=== PATIENT | male | born 1985 | race Caucasian/White ===

== ENCOUNTER 2024-02-27 21:05 | Inpatient (IN) | payer OTHER, SELFPAY ==
[2024-02-27 17:22] VITALS: BP 117/65
[2024-02-27 17:26] VITALS: BP 117/65
--- NOTE | 2024-02-27 17:30 | ED.GENMED ---
History of Present Illness
General
Chief Complaint: Skin Problem
Time Seen by Provider: 02/27/24 17:16
History of Present Illness
History of Present Illness:
Patient is a 38-year-old male who is an inmate at correctional facility who presents for cellulitis. Reports that he has recurrent cellulitis in the left lower extremity. He has a history of injection drug use. He has not done this in years. He
reports having redness and pain to the left lower extremity. This is worsened despite a course of doxycycline which she finished on Monday. Had a fever to 104 today. Given vancomycin and cefepime just prior to coming to the hospital. Given
Tylenol just prior to coming to the hospital
Past History
Past History
ED Past Medical History: None
Social History
Tobacco: Former smoker
Alcohol: Occasional
Family History
Family History: Negative Diabetes, Hypertension or CAD
Phy Exam
Physical Exam
Physical Exam:
GENERAL APPEARANCE: No distress, disheveled appearing, feels warm
EYES lids/conjunctiva normal
EARS/NOSE/THROAT Mucous membranes moist, uvula midline without oral pharyngeal erythema, exudate or swelling
HEAD/NECK normocephalic atraumatic, neck is supple.
RESPIRATORY respiratory effort normal, speaks in full sentences, no accessory muscle use. Lungs clear to auscultation without rhonchi, wheezes, rales
CARDIAC tachycardic
ABDOMINAL Soft, ND/NT. No pulsatile masses on exam, rebound tenderness, Johnson sign or pain over Mcburney's point.
MUSCLES/EXTREMITIES soft tissue edema to lower extremities bilaterally. There is erythema and superficial abrasions on anterior left lower leg. Erythema is streaking up left medial thigh. There are palpable pulses. Sensations intact to light
touch throughout. Is 5 out of 5 strength throughout there is left inguinal lymphadenopathy which patient states is chronic from prior missed 1 injecting drugs
SKIN Warm, pink and dry. No rashes
NEUROLOGICAL Speech is clear and appropriate. Normal level of consciousness. 5/5 strength in all extremities.
PSYCH Normal mood and affect. Judgement/competence is appropriate
Sepsis
Sepsis Screening
Sepsis Assessment: Sepsis
Sepsis Screen
Sepsis Screen: Sepsis
Date: 02/27/24
Time: 22:46
Course
Orders/Labs/Results
Orders:
Orders
02/27/24 17:25
Urinalysis Reflex To Culture Urgent
0.9% Sodium Chloride 1000 ml [Nss] 2,000 ml IV BOLUS
US Periph Venous LOWER Ext LT Urgent
Comment:
Reason For Exam: rule out dvt
02/27/24 17:26
Electrocardiogram (*1) Urgent
Reason for Study: Other
Other Reason for Exam: sepsis
02/27/24 18:36
Blood Culture Q30M
JOAN Source: Blood/Venous
Specimen Description:
02/27/24 18:57
Complete Blood Count/With Diff Urgent
Comprehensive Metabolic Panel Urgent
Manual Differential Urgent
Blood Culture Q30M
JOAN Source: Blood/Venous
Specimen Description:
02/27/24 20:16
Admit/Transfer Patient As Directed
Co-Sign Provider:
Level of Care: Inpatient admission
Assign to:: Medical/Surgical
Physician / Group: hospitalist
Diagnosis: cellulitis
Reason for Hospitalization: sepsis
Expected length of stay greater than two midnights?: Yes
ELOS- Estimated Length of Stay in days: 2
I certify the patient meets the requirements for IP care: Yes
PRN Pain Medication Management As Directed
May give lesser potent ordered pain med per pt: Yes
preference::
Protocol:: Medication orders for pain may be administered in a
manner that supports deferring to patient preference
when the pt is:
- Requesting an ordered lesser potent pain medication.
Least to most potent pain medications are defined
as: acetaminophen < NSAID < tramadol < opioids
(morphine, oxycodone, hydromorphone).
- Requesting a lesser dose of the same medication IF
ORDERED.
- Requesting a less intrusive route of administration
if both routes are prescribed by the provider (PO <
IV).
02/27/24 20:17
Code Status As Directed
Resuscitation Status: Full Code
02/27/24 21:02
Lactic Acid Q4H
Comment: CANCEL 2nd LACTIC ACID IF 1st LACTIC ACID IS LESS THAN 2
Abnormal Lab Results
02/27/24
18:57
RBC 3.89 L 10^6/uL
(4.70-6.10)
Hgb 10.8 L g/dL
(13.0-18.0)
Hct 33.2 L %
(39.0-52.0)
MCHC 32.5 L g/dL
(33.0-37.0)
RDW 15.9 H %
(11.5-14.5)
Abs Neuts (Manual) 8.7 H 10^3/uL
(1.4-6.5)
Band Neutrophils 27 H %
(0-3)
Lymphocytes (Manual) 3 L %
(20-51)
BUN 22 H mg/dl
(9-20)
02/27/24 18:57
02/27/24 18:57
Vital Signs
Initial and Last Documented VS:
Initial Vital Signs
Temp Pulse Resp BP Pulse Ox
99.4 F 127 20 117/65 100
02/27/24 17:22 02/27/24 17:22 02/27/24 17:22 02/27/24 17:22 02/27/24 17:22
Last Documented Vital Signs
Temp Pulse Resp BP Pulse Ox
99.0 F 101 19 122/66 96
02/27/24 22:00 02/27/24 22:00 02/27/24 22:00 02/27/24 22:00 02/27/24 22:00
*Critical Care Note
Total Time (30-74mins, 75-104mins- exclusive of procedures): Not Applicable
ED Attending Note
ED Attending Note
ED Attending Note:
Patient presents with febrile cellulitis. No fluctuance or purulence noted. Concern for sepsis with fevers and tachycardia. Will need admission. Will rule out DVT. Patient received broad-spectrum antibiotics just prior to arrival.
-
Portions of this chart may have been created with voice recognition software.� Occasional wrong word or��sound alike� substitutions may have occurred due to the inherent limitations of voice recognition software.
Discharge Plan
Departure
Patient Disposition: Admit
Date of Disposition: 02/27/24
Time of Disposition: 20:11
Presentation/result/management discussed w/ accepting MD/DO: Hospitalist
Discharge Problem:
Cellulitis, Sepsis
Interventions
Interventions:
*Risk Screen - Suicide Last Done: 02/27/24 17:26
*General Assessment Last Done: 02/27/24 17:26
*Neglect/Abuse Screening Last Done: 02/27/24 18:12
ED- Fall Risk Assessment Last Done: 02/27/24 18:14
*ED COVID-19 Vaccine History Last Done: 02/27/24 18:12
*Nursing Disposition Last Done: 02/27/24 22:42
ED-Skin Assessment Last Done: 02/27/24 18:14
Discharge Date and Time
Discharge Date/Time: 02/27/24 22:43
[2024-02-27] MEDS: NSS 2000 IV (18:54)
[2024-02-27 19:25] LABS: ALT (SGPT) 28 U/L (0-50); AST (SGOT) 29 U/L (17-59); Albumin 3.8 g/dl (3.5-5.0); Alkaline Phosphatase 78 U/L (38-126); Blood Urea Nitrogen 22 mg/dl (9-20); Calcium 8.4 mg/dl (8.4-10.2); Carbon Dioxide 27 mmol/L (22-30); Chloride 99 mmol/L (98-107); Glucose 95 mg/dl (70-99); Potassium 4.1 mmol/L (3.5-5.1); Sodium 135 mmol/L (135-145); Total Bilirubin 0.5 mg/dl (0.2-1.3); Total Protein 7.7 g/dl (6.3-8.2); eGFR > 60.00
[2024-02-27 19:30] LABS: Hematocrit 33.2 % (39.0-52.0); Hemoglobin 10.8 g/dL (13.0-18.0); Mean Corp Hgb Conc. 32.5 g/dL (33.0-37.0); Mean Corpuscular Hgb 27.8 pg (27.0-31.0); Mean Corpuscular Volume 85.3 fL (80.0-94.0); Mean Platelet Volume 8.6 fL (7.4-10.4); Platelet Count 159 10^3/uL (130-400); Red Blood Cell Count 3.89 10^6/uL (4.70-6.10); Red Cell Dist. Width 15.9 % (11.5-14.5); White Blood Cell Count 9.2 10^3/uL (4.8-10.8)
[2024-02-27 19:32] LABS: Absolute Neutrophils -Man Diff 8.7 10^3/uL (1.4-6.5); Band Neutrophils 27 % (0-3); Lymphocytes 3 % (20-51); Monocytes 2 % (2-9); Platelets Checked Yes; Segmented Neutrophils 68 % (42-75)
[2024-02-27 19:33] LABS: Anisocytosis 1+; Microcytosis 1+; Normal RBC Morphology No; Total Cells Counted 100
--- NOTE | 2024-02-27 20:24 | HPS.HSE ---
Family Physician
-
Family Physician: [facility]
Chief Complaint
-
Left leg pain and swelling and fevers
History of Present Illness
This is a 38-year-old male with past medical history of IV drug use currently incarcerated who presents to the emergency department with redness swelling in the left lower extremities as well as fevers.
Patient tells me that he has had a history of chronic wound in the left lower extremity and has recurrent infections to the. He reports that he has recently been started on doxycycline and has finished a course without any improvement. Things were
essentially stable up until today when he had a severe flareup with high fevers. He reported marked redness and swelling up to the knees. There was no new drainage. He had no new injuries.
On arrival in the emergency department he had a temp of 99.4, blood pressure 117/69 and was tachycardic 129. White count was 9 with 27% bands. Electrolytes and BUN/creatinine were within normal limits. Patient was started on vancomycin and
cefepime.
Medical History
Past Medical History
Past Medical History: Reports Other
Additional Past Medical History:
IVDU
Past Surgical History: Reports Orthopedic (Lumbar spine discectomy and fusion, shoulder arthroscopy)
Social History
Tobacco: Former Smoker
Alcohol: None
Drug: Former User
Personal: Single
Living: Halfway
Employment: Not Employed
Family History
Family History: Not pertinent
Allergies / Home Medications
Allergies reflects when Allergies were last updated in [employer].
Home Medications with original date entered in [employer]
Allergy/Medication List:
Allergies
Allergy/AdvReac Type Severity Reaction Status Date / Time
No Known Allergies Allergy Verified 02/27/24 17:21
Home Medications
buprenorphine HCl 8 mg sublingual tablet 16 mg sublingual DAILY 02/27/24
cefepime 2 gram solution for injection 0 g IV Q12H 02/27/24
furosemide 20 mg tablet 20 mg PO DAILY 02/27/24
ibuprofen 200 mg tablet 200 mg PO BIDPRN PRN mild pain/fever 02/27/24
vancomycin 1,000 mg intravenous injection 0 g IV BID 02/27/24
Review of Systems
-
History Source: Patient
Constitutional: Reports Fever
EENT: Reports No Symptoms
Respiratory: Reports No Symptoms
Cardiac: Reports No Symptoms
Abdomen/GI: Reports No Symptoms
: Reports No Symptoms
Musculoskeletal: Reports Edema
Skin: Reports Rash
Neurological: Reports No Symptoms
Endocrine: Reports No Symptoms
Hematologic/Lymphatic: Reports No Symptoms
Psych: Reports No Symptoms
Physical Exam
Vital Signs
Vital Signs
Temp Pulse Resp BP Pulse Ox
99.4 F 129 20 117/65 98
02/27/24 17:26 02/27/24 17:26 02/27/24 17:26 02/27/24 17:26 02/27/24 17:26
Physical Exam
General: Well Developed, Well Nourished and Comfortable
HEENT: NormoCephalic, Anicteric, Moist mucous membranes and Atraumatic
Respiratory: Clear
Cardiac: S1/S2 and Tachycardia
Breast: Deferred by me
GI: Soft, Non Tender, Non Distended and Normal Bowel Sounds
Rectal: Deferred by Provider
Genito-urinary: Deferred by me
Musculoskeletal: No Clubbing, No Cyanosis and Edema, Left Lower Extremity
Skin: Rash (rapidly spreading LLE erythema, tenderness and edema. )
Neuro: AO x 3
Hematologic/Lymphatic: No Lymphadenopathy
Psych: Calm
Laboratory Results
-
02/27/24 18:57
02/27/24 18:57
Laboratory Results
Total Bilirubin 0.5 mg/dl (0.2-1.3) 02/27/24 18:57
AST 29 U/L (17-59) 12/10/24 18:57
ALT 28 U/L (0-50) 02/27/24 18:57
Alkaline Phosphatase 78 U/L (38-126) 02/27/24 18:57
Data Reviewed
-
Ultrasound: Report Reviewed by me
Lab Data: Labs Reviewed by me
Old Records: Reviewed
Impression/Plan
-
IMPRESSION:
Severe left LE cellulitis. No DVT. No apparent deep tissue edema on u/s. Has bandemia with lactic acid pending. Likely sepsis given fever, tachycardia and rapid spread.
PLAN:
Cellulitis
- admit to med surg
- 30 ml/kg NS bolus
- continue iv fluids overnight
- cefepime q8, Vancomycin per pharm dosing, clindamycin q8 (d/c pending improvement)
- ID consultation
h/o IVDU
- continue buprenorphine daily
DVT PPX - lovenox sq
Code status - full code
[2024-02-27 22:00] VITALS: BP 122/66
[2024-02-27 23:04] VITALS: BMI 23.9
[2024-02-27 23:30] LABS: Urine Albumin Trace (Neg - Trace); Urine Bilirubin Negative (Negative); Urine Character Clear (Clear); Urine Color Yellow; Urine Glucose Negative (Negative); Urine Ketone Negative (Negative); Urine Leukocyte Trace (Negative); Urine Nitrite Negative (Negative); Urine Occult Blood Negative (Negative); Urine Specific Gravity 1.015 (<1.030); Urine Urobilinogen Negative (Neg - 1+)
[2024-02-27] MEDS: CLEOCIN 50 IV (23:30)
[2024-02-27] MEDS: DILAUDID 0.5 MG IV (23:30)
[2024-02-27 23:39] VITALS: BP 109/71
[2024-02-27] MEDS: TYLENOL 650 MG PO (23:43)
[2024-02-27 23:51] LABS: Urine Red Blood Cell 0-2 /HPF (0-2); Urine Squamous Cell 0-2 /LPF (Few)
[2024-02-28] MEDS: VANCOCIN 540 MG IV (00:18)
[2024-02-28] MEDS: STERILE WATER FOR INJECTION 10 ML IV ×2 (02:40→10:22)
[2024-02-28] MEDS: MAXIPIME 2000 MG IV ×2 (02:40→10:22)
[2024-02-28] MEDS: DILAUDID 0.5 MG IV ×3 (03:35→19:48)
[2024-02-28] MEDS: TYLENOL 650 MG PO ×3 (03:45→23:26)
--- NOTE | 2024-02-28 05:31 | PTCARENOTE ---
Pt admitted to [facility] from ED. Pt AAOx3. Ambulated from stretcher with standby assist. + generalized pain, PRN dilaudid given x 2. Lungs clear, pt on room air. Good appetite. + UOP. Pt febrile overnight with tmxax 103.3, tylenol given x 2.
[2024-02-28] MEDS: TORADOL 10 MG IV ×3 (06:37→23:25)
[2024-02-28 07:15] VITALS: BP 98/57
[2024-02-28] MEDS: LASIX 20 MG PO (07:49)
[2024-02-28] MEDS: SUBUTEX 16 MG SL (07:49)
[2024-02-28] MEDS: CLEOCIN 50 IV ×3 (08:27→23:22)
--- NOTE | 2024-02-28 09:51 | CM ---
Pt admitted with cellulitis from [facility]. CM will follow for discharge planning needs.
Plan: Pt will return to [facility] via van with guard when medically stable.
[facility] phone: [phone]
[2024-02-28 10:34] LABS: Hematocrit 28.9 % (39.0-52.0); Hemoglobin 9.9 g/dL (13.0-18.0); Mean Corp Hgb Conc. 34.3 g/dL (33.0-37.0); Mean Corpuscular Hgb 28.5 pg (27.0-31.0); Mean Corpuscular Volume 83.3 fL (80.0-94.0); Mean Platelet Volume 9.2 fL (7.4-10.4); Platelet Count 155 10^3/uL (130-400); Red Blood Cell Count 3.47 10^6/uL (4.70-6.10); Red Cell Dist. Width 16.3 % (11.5-14.5)
[2024-02-28 11:10] LABS: Blood Urea Nitrogen 23 mg/dl (9-20); Calcium 7.4 mg/dl (8.4-10.2); Carbon Dioxide 24 mmol/L (22-30); Chloride 100 mmol/L (98-107); Estimated Creatinine Clearance > 125 ml/min; Glucose 81 mg/dl (70-99); Sodium 133 mmol/L (135-145); eGFR > 60.00
--- NOTE | 2024-02-28 11:14 | W.PN.HOSP.TC ---
Today's Communication/Plan
-
see A/P
Assessment / Plan
Assessment / Plan
HPI: 38-year-old male with past medical history of IV drug use currently incarcerated who presented to the emergency department with redness, swelling in the left lower extremities as well as fevers.
Patient has history of chronic wound in the left lower extremity and has recurrent infections. He reports that he has recently been started on doxycycline and has finished a course without any improvement. He reported marked redness and swelling up
to the knees. There was no new drainage. He had no new injuries.
A/P:
# sepsis POA 2/ LLE Cellulitis
Follow blood culture
Cont Abx cefepime q8, and Vancomycin per pharm dosing, clindamycin q8 (d/c pending improvement)
ID consultation
Check BL LE US
# h/o IVDU
continue buprenorphine daily
DVT PPX - lovenox sq
Code status - full code
Anticipated Discharge: 24 - 48 hours
Subjective/Interval History
-
Date of Service: February 28, 2024
Objective Data
-
Labs:
Laboratory Results
02/28/24
10:08
WBC 15.0 H
Hgb 9.9 L
Hct 28.9 L
Plt Count 155
Sodium 133 L
Potassium 4.0
Chloride 100
Carbon Dioxide 24
BUN 23 H
Creatinine 1.0
Glucose 81
Calcium 7.4 L
Vital Signs:
Vital Signs
Temp Pulse Resp BP Pulse Ox
37.9 C 104 18 98/57 98
02/28/24 07:15 02/28/24 07:15 02/28/24 07:15 02/28/24 07:15 02/28/24 07:15
I&O
02/27/24 02/28/24 02/29/24
06:59 06:59 06:59
Intake Total 960 / 960
Output Total 675 / 675
Balance 285 / 285
--- NOTE | 2024-02-28 13:10 | PHA.VAN.IN ---
Assessment
- Assessment
Renal Function: Unknown baseline
Maximum Temperature: 103.3
Minimum Temperature: 99.0
Concomitant Antimicrobials: cefepime, clindamycin
AUC Dosing Plan
- Dosing Variables
Dosing Weight (kg): 93.7
Dosing CrCl (ml/min): 125
Vd coefficient (L/kg): 0.7
- Empiric Dosing
Initial / Loading Dose: vanc 2000mg (21.3 mg/kg) 02/27 00:18
Maintenance Regimen: vanc 1000mg q8h
Estimated AUC (mcg*h/mL): 428
Estimated Peak (mcg*h/mL): 25.3
Estimated Trough (mcg/ml): 11.8
Estimated Half Life (H): 6.4
- Monitoring
No levels ordered at this time: consider in the upcoming days
Pharmacokinetics Vancomycin I
- -
Patient Age: 38
Patient Sex: Male
Vancomycin Day #: 1 (vancomycin prior to admission)
Indication: Skin And Soft Tissue
Requesting Provider: Dr. Eden
Pertinent Antimicrobial Allergies:
no known allergies
Height / Weight:
Height 6 ft 6 in
Actual Weight 93.758 kg
Pertinent Past Medical History: IV drug use
- Vital Signs / Lab Results
Temp Pulse Resp BP Pulse Ox
100.2 F 104 18 98/57 98
02/28/24 07:15 02/28/24 07:15 02/28/24 07:15 02/28/24 07:15 02/28/24 07:15
Lab Results - Hematology
02/27/24 02/28/24
18:57 10:08
WBC 9.2 15.0 H
Band Neutrophils 27 H
Lab Results - Chemistry
02/27/24 02/28/24
18:57 10:08
BUN 22 H 23 H
Creatinine 0.9 1.0
Estimated Creat Clear > 125
Albumin 3.8
02/27/24 02/27/24
18:57 21:02
Lactic Acid Cancelled 1.0
Lab Results - Urine
02/27/24
23:12
Urine Nitrite (Reflex) Negative
Leukocyte Esterase Rfl Trace A
Urine WBC (Reflex) 3-5
Ur Squamous Epith Cells 0-2
--- NOTE | 2024-02-28 13:35 | CON.ID ---
Consultation
-
Date/Time Consultation Requested: 02/28/24 11:21
Date/Time Consultation Performed: 02/28/24 13:36
Requesting Provider: Dr Espinoza
Performing Provider: Dr Viera
Reason for Consultation: Left leg pain and swelling and fevers
Chief Complaint / Past History
Chief Complaint
Left leg pain and swelling and fevers
History of Present Illness
Mr Draper is a 38 year old male with history of IVDU now on buprenorphine complicated by a chronic wound of the L lower extremity presenting here from [facility] for increased redness and swelling of the left lower extremity and fevers.
Reports a recent course of doxycycline which he finished without improvement. Reports he's never been screened for HIV, has previously been screened for hep c and told his ab was positive but viral load undetectable. Has been on buprenorphine for
several weeks
Since arrival here patient has been febrile to 103.3, bp overall stable, HR 80s initially now running low 100s, wbc initially 9.2 todya 15, hgb 9.9, plt 155, no differential done, na 133, cr 1.0, t bili 0.5, ast 29, alt 28, alk phos 78, UA no
pyuria, venous US: no dvt, reactive lymphadenopathy noted, blood cultures x2 in progress, currently on vanc, cefepime and clindamycin
Past History
Additional Past Medical History:
as per hpi
Additional Past Surgical History:
Lumbar spine discectomy and fusion, shoulder arthroscopy
Allergy History:
No Known Allergies Allergy (Verified 02/27/24 17:21)
Medications Reviewed: Yes
Social History
Tobacco: Former Smoker
Alcohol: None
Drug: Former User
Family History
Family History: Not Pertinent
Review of Systems
Review of Systems
General: Fever and Chills
All systems: All other systems were reviewed and were negative
Vital Signs
Temp Pulse Resp BP Pulse Ox
100.2 F 104 18 98/57 98
02/28/24 07:15 02/28/24 07:15 02/28/24 07:15 02/28/24 07:15 02/28/24 07:15
Physical Exam
Physical Exam
Constitutional: No Acute Distress
Cardiovascular: Regular Rate and S1/S2; Negative Murmur or Rub
Pulmonary: Clear and Symmetric; Negative Wheezes, Rales or Rhonchi
Gastrointestinal: Soft, Non Tender, Non Distended and Normal Bowel Sounds
Extremities: Other (left leg 4 superficial excoriations without probe to tendon or bone, xerosis, nonpurulent cellulitis and trace edema)
Skin: Warm and Dry; Negative Rash or Jaundice
Neurological: Awake
Lab / Diagnostic Study Results
02/28/24 10:08
02/28/24 10:08
Total Counted 100 02/27/24 18:57
Abs Neuts (Manual) 8.7 10^3/uL (1.4-6.5) H 02/27/24 18:57
Segmented Neutrophils 68 % (42-75) 02/27/24 18:57
Band Neutrophils 27 % (0-3) H 02/27/24 18:57
Lymphocytes (Manual) 3 % (20-51) L 02/27/24 18:57
Lactic Acid 1.0 mmol/L (0.7-2.0) 02/27/24 21:02
Ur Squamous Epith Cells 0-2 /LPF (Few) 02/27/24 23:12
Microbiology Results
Micro:
02/27/24 18:57 Blood Culture - Pending
Blood/Venous
02/27/24 18:36 Blood Culture - Pending
Blood/Venous
Assessment / Plan
Nonpurulent cellulitis
Superficial wounds x4
Edema
- blood cultures x2 in progress
- start cefazolin 2 gm iv q8hrs
- clindamycin x2 days
- UDS
- too tender for compression at the moment, elevation encouraged
- xray of the leg - wounds are very superficial and not overlying any bony prominences - doubt osteomyelitis
- screen for HIV - patient gives consent
- follow clinically
[2024-02-28 15:15] VITALS: BP 104/64
[2024-02-28 15:25] LABS: Amphetamines Negative (Negative); Barbiturates Negative (Negative); Benzodiazepines Negative (Negative)
[2024-02-28 15:26] LABS: Buprenorphine Positive (Negative); Cocaine Negative (Negative); Marijuana Negative (Negative); Methadone Negative (Negative); Methamphetamines Negative (Negative); Opiates Negative (Negative); Phencyclidine Negative (Negative); Tricyclic Antidepressants Negative (Negative)
[2024-02-28 16:04] LABS: Fentanyl, Urine Negative (Negative)
[2024-02-28] MEDS: ANCEF 10 IV ×2 (16:49→23:28)
[2024-02-28] MEDS: LOVENOX 40 MG SC (18:33)
[2024-02-28 23:01] VITALS: BP 102/59
[2024-02-29] MEDS: DILAUDID 0.5 MG IV ×4 (01:37→23:18)
[2024-02-29 07:55] LABS: Hematocrit 30.8 % (39.0-52.0); Hemoglobin 9.7 g/dL (13.0-18.0); Mean Corp Hgb Conc. 31.5 g/dL (33.0-37.0); Mean Corpuscular Hgb 28.2 pg (27.0-31.0); Mean Corpuscular Volume 89.5 fL (80.0-94.0); Mean Platelet Volume 8.9 fL (7.4-10.4); Platelet Count 137 10^3/uL (130-400); Red Blood Cell Count 3.44 10^6/uL (4.70-6.10); Red Cell Dist. Width 16.2 % (11.5-14.5); White Blood Cell Count 14.1 10^3/uL (4.8-10.8)
[2024-02-29] MEDS: ANCEF 10 IV ×3 (08:07→23:18)
[2024-02-29] MEDS: CLEOCIN 50 IV ×2 (08:07→15:40)
[2024-02-29] MEDS: LASIX 20 MG PO (08:08)
[2024-02-29] MEDS: SUBUTEX 16 MG SL (08:08)
[2024-02-29 08:25] VITALS: BP 120/79
[2024-02-29 08:26] LABS: Blood Urea Nitrogen 25 mg/dl (9-20); Calcium 7.8 mg/dl (8.4-10.2); Carbon Dioxide 25 mmol/L (22-30); Chloride 102 mmol/L (98-107); Estimated Creatinine Clearance > 125 ml/min; Glucose 76 mg/dl (70-99); Magnesium 1.9 mg/dl (1.6-2.3); Potassium 4.3 mmol/L (3.5-5.1); Sodium 134 mmol/L (135-145); eGFR > 60.00
[2024-02-29 10:56] LABS: Absolute Neutrophils -Man Diff 12.4 10^3/uL (1.4-6.5); Band Neutrophils 8 % (0-3); Eosinophils 1 % (0-6); Lymphocytes 5 % (20-51); Metamyelocytes 2 % (-); Monocytes 4 % (2-9); Segmented Neutrophils 80 % (42-75)
[2024-02-29 10:57] LABS: Normal RBC Morphology Yes; Platelets Checked Yes; Total Cells Counted 100; Toxic Granulation 1+
--- NOTE | 2024-02-29 11:42 | W.PN.HOSP.TC ---
Today's Communication/Plan
-
see A/P
Assessment / Plan
Assessment / Plan
HPI: 38-year-old male with past medical history of IV drug use currently incarcerated who presented to the emergency department with redness, swelling in the left lower extremities as well as fevers.
Patient has history of chronic wound in the left lower extremity and has recurrent infections. He reports that he has recently been started on doxycycline and has finished a course without any improvement. He reported marked redness and swelling up
to the knees. There was no new drainage. He had no new injuries.
A/P:
# sepsis POA 2/ LLE Cellulitis
blood cultures so far negative
cont IV Abx Ancef for now and clindamycin for x2 days
Appreciate ID input
BL LE US neg for DVT
# h/o IVDU
continue buprenorphine daily
DVT PPX - lovenox sq
Code status - full code
Anticipated Discharge: 24 - 48 hours
Subjective/Interval History
-
Date of Service: February 29, 2024
Objective Data
-
Labs:
Laboratory Results
02/29/24
07:18
WBC 14.1 H
Hgb 9.7 L
Hct 30.8 L
Plt Count 137
Sodium 134 L
Potassium 4.3
Chloride 102
Carbon Dioxide 25
BUN 25 H
Creatinine 0.9
Glucose 76
Calcium 7.8 L
Vital Signs:
Vital Signs
Temp Pulse Resp BP Pulse Ox
36.9 C 80 16 120/79 100
02/29/24 08:25 02/29/24 08:25 02/29/24 08:25 02/29/24 08:25 02/29/24 08:25
I&O
02/28/24 02/29/24 03/01/24
06:59 06:59 06:59
Intake Total 960 / 960 1660 / 1660 1440 / 1440
Output Total 675 / 675 1300 / 1300 1650 / 1650
Balance 285 / 285 360 / 360 -210 / -210
Review of Systems
-
All other systems: Reviewed and negative
Physical Exam
-
General: Well Developed, Well Nourished, No Apparent Distress, Comfortable and Conversant; Negative Respiratory Distress
HEENT: Normocephalic, Atraumatic, Nose Appears Normal and Ears Appear Normal; Negative Oxygen
Respiratory: Non Labored Respirations; Negative Accessory Resp Muscle Use
Cardiac: Regular Rhythm and S1/S2
GI: Soft, Nontender, Nondistended and Normal Bowel Sounds
Musculoskeletal: Edema, Right Lower Extrem and Edema, Left Lower Extrem
Skin: Warm and Dry
Neuro: Awake, Alert, Oriented and AO x 3
Psych: Calm and Intact Judgement/Insight
Data Reviewed
-
Ultrasound: Report Reviewed by me
Labs: Labs Reviewed by me
--- NOTE | 2024-02-29 13:36 | CM ---
CM following re: discharge planning.
Reviewed pt's chart, guards at bedside.
Pt is admitted from [facility] phone: [phone]
D/C plan: return back to [facility] when medically stable. Guards to transport.
[2024-02-29] MEDS: TYLENOL 650 MG PO (15:40)
[2024-02-29] MEDS: ZOFRAN 4 MG IV (15:40)
[2024-02-29 16:10] VITALS: BP 101/66
--- NOTE | 2024-02-29 17:20 | W.PN.ID1 ---
Date of Service
Date of Service: February 29, 2024
Today's Communication
- c/w cefazolin 2 gm iv q8hrs; tomorrow can switch to keflex 500 mg PO QID x5 more days
Assessment / Plan
Nonpurulent cellulitis
Superficial wounds x4 on the L leg
Edema
- blood cultures x2 in progress
- c/w cefazolin 2 gm iv q8hrs; tomorrow can switch to keflex 500 mg PO QID x5 more days
- stop clindamycin
- too tender for compression at the moment, elevation encouraged
- xray of the leg - no evidence of osteomyelitis, wounds are chronic for months and healing, if there was underlying osteomyelitis of this duration then it would be appreciated on xray. clinical picture is not consistent with osteomyelitis.
- screen for HIV - patient gives consent - pending
- local wound care
- follow clinically
Chief Complaint
-: Cellulitis
Subjective / Review of Systems
afebrile
leg much less erythematous
tolerating current therapies
much less pain in the leg
Vital Signs / Physical Exam
Vital Signs
Vital Signs
Temp Pulse Resp BP Pulse Ox
99.1 F 83 16 101/66 99
02/29/24 16:10 02/29/24 16:10 02/29/24 16:10 02/29/24 16:10 02/29/24 16:10
Physical Exam
Constitutional: No Acute Distress
Cardiovascular: Regular Rate and S1/S2; Negative Murmur or Rub
Pulmonary: Clear and Symmetric; Negative Wheezes or Rales
Gastrointestinal: Soft, Non Tender, Non Distended and Normal Bowel Sounds
Extremities: Other (left leg still with mild pinkness (much improved), mildly tender)
Skin: Warm and Dry; Negative Rash or Jaundice
Wound: Other (wounds x4 examined superficial, nonpurulent)
Neurological: Awake
Objective Data
Lab Data
Lab Results
02/29/24 07:18
02/29/24 07:18
Estimated Creat Clear > 125 ml/min 02/29/24 07:18
Lactic Acid 1.0 mmol/L (0.7-2.0) 02/27/24 21:02
Total Bilirubin 0.5 mg/dl (0.2-1.3) 02/27/24 18:57
AST 29 U/L (17-59) 02/27/24 18:57
ALT 28 U/L (0-50) 02/27/24 18:57
Alkaline Phosphatase 78 U/L (38-126) 02/27/24 18:57
Most recent labs reviewed.
Micro Results:
02/29/24 16:33 MRSA Screen - Pending
Nose
02/27/24 18:57 Blood Culture - Preliminary
Blood/Venous No Growth in 24 hours- Final report to follow
02/27/24 18:36 Blood Culture - Preliminary
Blood/Venous No Growth in 24 hours- Final report to follow
[2024-02-29] MEDS: LOVENOX 40 MG SC (17:58)
[2024-02-29] MEDS: TORADOL 10 MG IV (20:43)
[2024-02-29 23:10] VITALS: BP 101/61
[2024-03-01 07:55] VITALS: BP 107/71
[2024-03-01] MEDS: ANCEF 10 IV (08:11)
[2024-03-01] MEDS: SUBUTEX 16 MG SL (08:11)
[2024-03-01] MEDS: LASIX 20 MG PO (08:12)
[2024-03-01 08:34] LABS: % Basophils 0.5 % (0-2); % Immature Granulocytes 0.2 % (0-0.5); % Lymphocytes 11.4 % (20.5-51.1); % Monocytes 7.2 % (1.7-9.3); % Neutrophils 78.7 % (42.2-75.2); Absolute Eosinophils 0.2 10^3/uL (0-0.7); Absolute Monocytes 0.6 10^3/uL (0.1-0.6); Absolute Neutrophils 6.6 10^3/uL (1.4-6.5); Hemoglobin 9.5 g/dL (13.0-18.0); Mean Corp Hgb Conc. 32.8 g/dL (33.0-37.0); Mean Corpuscular Hgb 28.7 pg (27.0-31.0); Mean Corpuscular Volume 87.6 fL (80.0-94.0); Mean Platelet Volume 9.1 fL (7.4-10.4); Nucleated Red Blood Cells % 0 % (-); Platelet Count 140 10^3/uL (130-400); Red Blood Cell Count 3.31 10^6/uL (4.70-6.10); Red Cell Dist. Width 15.8 % (11.5-14.5); White Blood Cell Count 8.4 10^3/uL (4.8-10.8)
[2024-03-01 09:03] LABS: Blood Urea Nitrogen 22 mg/dl (9-20); Carbon Dioxide 27 mmol/L (22-30); Chloride 101 mmol/L (98-107); Estimated Creatinine Clearance > 125 ml/min; Glucose 86 mg/dl (70-99); Magnesium 1.7 mg/dl (1.6-2.3); Potassium 4.5 mmol/L (3.5-5.1); Sodium 132 mmol/L (135-145); eGFR > 60.00
--- NOTE | 2024-03-01 09:49 | W.PN.HOSP.TC ---
Addendum entered and electronically signed by Roxana Espinoza MD 03/01/24 14:28:
Total DC time 35 minutes
Original Note:
Today's Communication/Plan
-
see A/P
Assessment / Plan
Assessment / Plan
HPI: 38-year-old male with past medical history of IV drug use currently incarcerated who presented to the emergency department with redness, swelling in the left lower extremities as well as fevers.
Patient has history of chronic wound in the left lower extremity and has recurrent infections. He reports that he has recently been started on doxycycline and has finished a course without any improvement. He reported marked redness and swelling up
to the knees. There was no new drainage. He had no new injuries.
A/P:
# sepsis POA 2/2 LLE Cellulitis
blood cultures so far negative
IV Abx Ancef -> PO keflex 500 mg PO QID x5 more days
s/p clindamycin for x2 days
Appreciate ID input
BL LE US neg for DVT
# h/o IVDU
continue buprenorphine daily
# Mild hyponatremia
Sodium level 132 today
DVT PPX - lovenox sq
Code status - full code
Anticipated Discharge: Today
Subjective/Interval History
-
Date of Service: March 01, 2024
Objective Data
-
Labs:
Laboratory Results
03/01/24
08:02
WBC 8.4
Hgb 9.5 L
Hct 29.0 L
Plt Count 140
Sodium 132 L
Potassium 4.5
Chloride 101
Carbon Dioxide 27
BUN 22 H
Creatinine 0.7
Glucose 86
Calcium 8.0 L
Vital Signs:
Vital Signs
Temp Pulse Resp BP Pulse Ox
36.8 C 79 16 107/71 98
03/01/24 07:55 03/01/24 07:55 03/01/24 07:55 03/01/24 07:55 03/01/24 07:55
I&O
02/29/24 03/01/24 03/02/24
06:59 06:59 06:59
Intake Total 1660 / 1660 4280 / 4280
Output Total 1300 / 1300 5750 / 5750
Balance 360 / 360 -1470 / -1470
Review of Systems
-
All other systems: Reviewed and negative
Physical Exam
-
General: Well Developed, Well Nourished, No Apparent Distress, Comfortable and Conversant; Negative Respiratory Distress
HEENT: Normocephalic, Atraumatic, Nose Appears Normal and Ears Appear Normal; Negative Oxygen
Respiratory: Non Labored Respirations; Negative Accessory Resp Muscle Use
Cardiac: Regular Rhythm and S1/S2
GI: Soft, Nontender, Nondistended and Normal Bowel Sounds
Musculoskeletal: Edema, Right Lower Extrem and Edema, Left Lower Extrem
Skin: Warm and Dry
Neuro: Awake, Alert, Oriented and AO x 3
Psych: Calm and Intact Judgement/Insight
Data Reviewed
-
Ultrasound: Report Reviewed by me
Labs: Labs Reviewed by me
--- NOTE | 2024-03-01 10:12 | CM ---
Plan: discharge today; will return to [facility]
Report # [phone]
[2024-03-01 13:41] LABS: HIV Combo Negative (Negative)
--- NOTE | 2024-03-01 14:22 | W.DCSUMMARY ---
Discharge Summary
Discharge Data
Date of Admission: 02/27/24
Date of Discharge: 03/01/24
-
Pending Results: No
Hospital Course
Principal Diagnosis:
Sepsis on admission due to left lower extremity cellulitis
Chronic Diagnoses:�
History of intravenous drug use, on buprenorphine daily
Mild hyponatremia
Consultations:�
Infectious disease
Procedures:�
None
Clinical course:�
This is a 38-year-old male with past medical history as stated above, who was sent in from residential due to worsening of his lower extremity redness and swelling.
Problem 1:
Sepsis on admission due to left lower extremity cellulitis.
His blood cultures were negative.
He received IV antibiotics Ancef and 2 days course of clindamycin while in the hospital, and was discharged with oral Keflex 500 mg PO QID x5 more days per ID recommendation.
Of note, his bilateral lower extremity ultrasound was negative for DVT.
As for the rest of his medical problems, they were stable during his hospital stay.
Discharge Plan
-
Patient Disposition: Detention
Discharge Diagnosis/Procedures: Nonpurulent left leg cellulitis
Condition: Fair
Diet: As tolerated
Activity: As tolerated
Driving Restrictions: No driving
Referrals:
[facility] [Family Provider] - in less than 1 week
Additional Discharge Medication Instructions: keflex 500 mg PO QID x5 more days
Prescriptions:
New
cephalexin 500 mg capsule
500 mg PO Q6H 5 Days Qty: 20 0RF
Continued
ibuprofen 200 mg Tablet
200 mg PO BIDPRN PRN (Reason: mild pain/fever)
furosemide 20 mg Tablet
20 mg PO DAILY
buprenorphine HCl 8 mg Tablet, Sublingual
16 mg SUBLINGUAL DAILY
Discontinued
cefepime 2 gram Recon Soln
0 g IV Q12H
vancomycin 1,000 mg Recon Soln
0 g IV BID
Discharge Orders:
Discharge Patient (As Directed); Ordered 03/01/24
Ordered By: Roxana Espinoza
Discharge Date and Time
Discharge Date/Time: 03/01/24 12:16
Print Language: MALDIVIAN
== END 2024-03-01 12:16 | DRG 872 ==
LOC: 3 WEST ACU 21:05
PROVIDERS: ADMITTING PHYSICIAN Internal Medicine; ATTENDING PHYSICIAN Internal Medicine; CONSULT PHYSICIAN Student in an Organized Health Care Education/Training Program; EMERGENCY PHYSICIAN Emergency Medicine
DX: A41.9 Sepsis, unspecified organism (principal); L03.116 Cellulitis of left lower limb; E87.1 Hypo-osmolality and hyponatremia; F19.11 Other psychoactive substance abuse, in remission; Z87.891 Personal history of nicotine dependence; S80.812A Abrasion, left lower leg, initial encounter; X58.XXXA Exposure to other specified factors, initial encounter
CPT/HCPCS: 73590; 80048; 80053; 80306; 80307; 81003; 81015; 83605; 83735; 85025; 85027; 87040; 87070; 87389; 93005; 93970; 93971; 96360; 96361; 99285; 99406